=== PATIENT | female | born 1995 | race Two or more races ===

== ENCOUNTER 2023-12-14 04:42 | Inpatient (IN) | payer OTHER ==
[~2023-12-14] VITALS: Ht 162.6 cm; Wt 3.2 kg
[2023-12-14] MEDS ORDERED: PRENATAL TABLE1 EAC1 PO (04:48)
[2023-12-14] MEDS ORDERED: PEPCID AC10 MG PO (04:49)
[2023-12-14] MEDS ORDERED: RINGERS SOLUTION,LACTATED 1,000 ML IV SCH (05:00)
[2023-12-14 05:35] LABS: HEMATOCRIT 35.2 % (36.0-45.00); HEMOGLOBIN 12.3 g/dL (12.0-15.00); MEAN CELL VOLUME 90.9 fL (80.00-100.00); MEAN CORPUSCULAR HEMOGLOBIN 31.7 pg (27.00-32.0); MEAN CORPUSCULAR HGB CONC 34.8 g/dl (32.0-36.0); PLATELET COUNT 309 K/uL (150-450); RED BLOOD COUNT 3.87 M/uL (4.00-6.00); RED CELL DISTRIBUTION WIDTH 14.9 % (11.5-14.5)
[2023-12-14 05:55] LABS: INR 0.98; PARTIAL THROMBOPLASTIN TIME 28.8 SECONDS (22.0-34.0); PROTHROMBIN TIME 10.3 SECONDS (9.0-11.5)
[2023-12-14] MEDS ORDERED: MORPHINE SULFATE 4 MG/ML CARTRIDGE IV PRN (06:00)
[2023-12-14 06:05] LABS: ALBUMIN 2.6 gm/dL (3.4-5.0); BILIRUBIN TOTAL 0.33 mg/dL (0.3-1.2); CALCIUM 9.4 mg/dL (8.5-10.1); CREATININE SERUM 0.7 mg/dL (0.55-1.02); GFR 98.25; GLOBULINA 3.2 G/DL (2.4-3.5); POTASSIUM 3.73 mEq/L (3.5-5.1); TOTAL PROTEIN 5.8 gm/dL (6.4-8.2)
[2023-12-14] MEDS ORDERED: MORPHINE SULFATE 4 MG/ML CARTRIDGE IV STA (08:05)
[2023-12-14] MEDS ORDERED: CHLORHEXIDINE GLUCONATE 120 ML BOTTLE TOP ONE (10:54)
[2023-12-14] MEDS ORDERED: ERYTHROMYCIN BASE 1 GM TUBE OP ONE ×2 (10:54→17:45)
[2023-12-14] MEDS ORDERED: OXYTOCIN 20 UNITS/1000ML RL PIGGYBAG IV ONE (10:54)
[2023-12-14] MEDS ORDERED: OXYTOCIN 20 UNITS/500ML RL PIGGYBAG IV ONE (14:06)
[2023-12-14] MEDS ORDERED: OXYTOCIN 500 ML IV ONE (15:15)
[2023-12-14] MEDS ORDERED: OXYTOCIN 10 UNITS/ML VIAL ONE ×2 (17:07)
[2023-12-14] MEDS ORDERED: ERYTHROMYCIN BASE 3.5 GM OINT...G. OP ONE (17:07)
[2023-12-14] MEDS ORDERED: CEFAZOLIN SODIUM 1,000 MG VIAL ONE (17:16)
[2023-12-14] MEDS ORDERED: CITRIC ACID/SODIUM CITRATE 30 ML BLIST.PACK PO ONE (17:17)
[2023-12-14] MEDS ORDERED: CLINDAMYCIN PHOSPHATE 150 MG/ML (900mg) ONE (17:20)
[2023-12-14] MEDS ORDERED: CITRIC ACID/SODIUM CITRATE 30 ML BLIST.PACK PO SCH (17:30)
[2023-12-14] MEDS ORDERED: CLINDAMYCIN PHOSPHATE 150 MG/ML (600mg) IV SCH (17:30)
[2023-12-14] MEDS ORDERED: OXYTOCIN 10 UNITS/ML VIAL IV ONE (17:45)
[2023-12-14] MEDS ORDERED: MEPERIDINE HCL/PF 50 MG/ML VIAL IM PRN (18:45)
[2023-12-14] MEDS ORDERED: IBUprofen 400 MG TABLET PO PRN (18:45)
[2023-12-14] MEDS ORDERED: OXYTOCIN 1,000 ML IV SCH (18:45)
[2023-12-14] MEDS ORDERED: FAMOTIDINE/PF 20 MG/2 ML VIAL IV PUSH SCH (21:45)
[2023-12-15] MEDS ORDERED: OxyCODONE HCL/APAP UD (PERCOCET) PO PRN (08:15)
[2023-12-15 09:42] LABS: HEMATOCRIT 30.3 % (36.0-45.00); MEAN CELL VOLUME 91.8 fL (80.00-100.00); MEAN CORPUSCULAR HEMOGLOBIN 31.5 pg (27.00-32.0); MEAN CORPUSCULAR HGB CONC 34.3 g/dl (32.0-36.0); PLATELET COUNT 249 K/uL (150-450)
[2023-12-15 09:43] LABS: HEMOGLOBIN 10.4 g/dL (12.0-15.00)
[2023-12-16] MEDS ORDERED: FAMOtidine 20 MG TABLET PO SCH (15:11)
[2023-12-16] MEDS ORDERED: SIMETHICONE 125 MG CAPSULE PO SCH (18:04)
== END 2023-12-17 11:08 | disposition home or self-care (01) | DRG 788 ==
LOC: LDR 04:42 → OB/GYN 04:42 → O/R 17:47 → OB/GYN 18:43
PROVIDERS: Obstetrics & Gynecology; ADMIT Obstetrics & Gynecology; ATTEND Obstetrics & Gynecology
PROC: 4A1HXCZ Monitoring of Products of Conception, Cardiac Rate, External Approach (ICD-10-PCS; 2023-12-14)
PROC: 10D00Z1 Extraction of Products of Conception, Low, Open Approach (ICD-10-PCS; principal; 2023-12-14 18:30)
DX: O33.8 Maternal care for disproportion of other origin (principal); Z3A.38 38 weeks gestation of pregnancy; Z37.0 Single live birth; Z20.822 Contact with and (suspected) exposure to COVID-19

== ENCOUNTER 2025-08-03 18:40 | Emergency (ER) | payer OTHER ==
[~2025-08-03] VITALS: Ht 162.6 cm; Wt 93.0 kg
[~2025-08-03 18:40] MED LIST: PEPCID AC10 MG PO; PRENATAL TABLE1 EAC1 PO
[2025-08-03] MEDS ORDERED: 0.9 % SODIUM CHLORIDE 1,000 ML IV STA ×2 (19:06→21:42)
[2025-08-03] MEDS ORDERED: ONDANSETRON HCL 2 MG/ML VIAL IV STA (19:06)
[2025-08-03] MEDS ORDERED: FAMOtidine 10 MG/ML (4ML VIAL) IV STA (19:06)
[2025-08-03] MEDS ORDERED: FAMOTIDINE/PF 20 MG/2 ML VIAL ONE (19:08)
[2025-08-03] MEDS ORDERED: ONDANSETRON HCL 2 MG/ML VIAL ONE (19:08)
[2025-08-03 19:34] LABS: BASO % 0.2 % (0.1-1.2); EOS # 0.01 (0.04-0.54); EOS % 0.1 % (0.7-7.0); LYMPH # 0.50 (1.18-3.74); LYMPH % 3.9 % (19.3-53.1); MEAN PLATELET VOLUME 9.40 fl (9.4-12.4); MONO # 0.38 (0.24-0.82); MONO % 3.0 % (4.7-12.5); NEUT # 11.83 (1.56-6.13); NEUT % 92.5 % (34.0-71.1); RED CELL DISTRIBUTION WIDTH 13.3 % (11.6-14.4)
[2025-08-03 19:38] LABS: ERYTHROCYTE SEDIMENTATION RATE 22 mm/hr (0-20)
[2025-08-03 20:01] LABS: INR 1.03
[2025-08-03 20:15] LABS: ALT/SGPT 22.0 U/L (12-78); AST/SGOT 14.0 U/L (15-37); BILIRUBIN TOTAL 0.66 mg/dL (0.3-1.2); BUN CREA RATIO 19.0 (7.0-25.0); CREATININE SERUM 0.74 mg/dL (0.55-1.02); GFR 90.95; GLOBULINA 3.8 G/DL (2.4-3.5); GLUCOSE FASTING 122.0 mg/dL (65-100); OSMOLALITY SERUM 277.0 MOSM/KG (275-295)
[2025-08-03 20:58] LABS: URINE APPEARANCE Clear; URINE BILIRRUBIN Negative (NEGATIVE); URINE BLOOD Moderate; URINE COLOR Yellow; URINE GLUCOSE Negative (NEGATIVE); URINE LEUKOCYTE Negative; URINE NITRATE Negative; URINE PROTEIN Trace (NEGATIVE); URINE UROBILINOGEN 0.2 E.U./dl
[2025-08-03 21:03] LABS: URINE BACTERIA 37.2 uL (0.0-1933); URINE EPITHELIAL CELLS 9.6 uL (0.0-38.8); URINE RBC 46.1 uL (0.0-20.8); URINE WBC 8.1 uL (0.0-23.2)
[2025-08-03 21:04] LABS: URINE CAST 0.00 uL (0.0-1.40); URINE KETONE 80 (NEGATIVE)
[2025-08-03] MEDS ORDERED: LACTOBACILLUS ACIDOPHILUS 1 CAP CAP PO STA (21:41)
[2025-08-03] MEDS ORDERED: MORPHINE SULFATE 4 MG/ML CARTRIDGE IV STA (21:41)
[2025-08-03] MEDS ORDERED: LACTOBACILLUS ACIDOPHILUS 1 CAP CAP PO ONE (22:19)
[2025-08-04] MEDS ORDERED: INTESTINEX680 M2 PO (01:11)
[2025-08-04] MEDS ORDERED: PEPCID20 MG PO (01:11)
== END 2025-08-04 02:16 | disposition home or self-care (01) ==
LOC: ER 18:41
PROVIDERS: Physician Assistant Medical
DX: K52.89 Other specified noninfective gastroenteritis and colitis (principal); Z88.0 Allergy status to penicillin; E86.0 Dehydration; B34.9 Viral infection, unspecified